=== PATIENT | female | born 2000 | race Caucasian/White ===

== ENCOUNTER 2020-07-19 22:05 | Emergency (ER) | payer BC ==
[~2020-07-19] VITALS: Ht 172.7 cm; Wt 72.7 kg
[2020-07-19 22:49] LABS: BASO # 0.1 (0.0-0.2); BASO % 0.9 % (0.0-2.0); EOS # 0.2 (0.0-0.7); EOS % 2.6 % (0-4.0); GRAN # 5.1 (1.4-6.5); GRAN % 62.5 % (42.2-75.2); HEMATOCRIT 41.5 % (35.0-45.0); HEMOGLOBIN 14.5 g/dl (12.0-15.0); LYMPH # 2.1 (1.2-3.4); LYMPH % 25.6 % (20.0-51.0); MEAN CELL VOLUME 91 fl (80.0-95.0); MEAN CORPUSCULAR HEMOGLOBIN 32 pg (26.0-32.0); MEAN CORPUSCULAR HGB CONC 35 g/dl (33.0-37.0); MEAN PLATELET VOLUME 9.7 fl (7.4-10.4); MONO # 0.6 (0.1-0.6); MONO % 7.9 % (1.7-9.3); PLATELET COUNT 282 K/mm3 (130-400); RED BLOOD COUNT 4.54 M/mm3 (4.10-5.30); REDCELL DISTRIBUTION WIDTH-CV 11.9 % (11.5-14.5)
[2020-07-19 22:54] LABS: ALANINE AMINOTRANSFERASE 14 U/L (4-34); ALBUMIN 4.7 gm/dL (3.5-5.0); ALCOHOL(ethanol),MEDICAL 219 mg/dL; ALKALINE PHOSPHATASE 97 U/L (50-136); ANION GAP 16 mmol/L (7-16); AST,SGOT 22 U/L (15-37); BILIRUBIN,TOTAL 0.3 mg/dL (0.0-1.0); BLOOD UREA NITROGEN 13 mg/dL (7-17); CALCIUM 8.8 mg/dL (8.4-10.2); CARBON DIOXIDE 23 mmol/L (22-30); CHLORIDE 101 mmol/L (98-107); CREATININE, serum 0.82 (0.52-1.25); GLUCOSE 273 mg/dL (74-106); POTASSIUM 3.4 mmol/L (3.4-5.0); SODIUM 140 mmol/L (137-145); TOTAL PROTEIN 8.1 gm/dL (6.4-8.2)
[2020-07-19 23:02] LABS: ACETONE,SERUM NEGATIVE
[2020-07-20 00:38] VITALS: TEMP 97.9
[2020-07-20 03:15] VITALS: BP 112/80; PULSE 99
== END 2020-07-20 03:15 | disposition home or self-care (01) ==
LOC: COL.ER 22:05
PROVIDERS: Emergency Medicine
DX: F10.129 Alcohol abuse with intoxication, unspecified (principal); E10.9 Type 1 diabetes mellitus without complications; Y90.7 Blood alcohol level of 200-239 mg/100 ml; Z32.02 Encounter for pregnancy test, result negative
CPT/HCPCS: J2405; J7030; J7120